=== PATIENT | female | born 1990 | race Caucasian/White ===

== ENCOUNTER 2017-01-15 14:13 | Inpatient (IN) | payer OTHER ==
[2017-01-15 15:43] VITALS: BMI 23.8
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
[2017-01-15] MEDS ORDERED: guaiFENesin/D-METHORPHAN HB 10 ML UNIT-DOSE CUPS PO PRN (17:33)
[2017-01-15] MEDS ORDERED: MENTHOL/PHENOL 1 EACH UD MM PRN (17:33)
[2017-01-15] MEDS ORDERED: ACETAMINOPHEN 325 MG TABLET (FP) PO PRN (17:33)
[2017-01-15] MEDS ORDERED: P-EPHED 60MG/TRIPROLIDI 2.5MG TABLET PO PRN (17:33)
[2017-01-15] MEDS ORDERED: LOPERAMIDE HCL 2 MG CAPSULE PO PRN (17:33)
[2017-01-15] MEDS ORDERED: MAGNESIUM HYDROX 2400MG/30ML ORAL SUSPENSION 30 ML CUP PO PRN (17:33)
[2017-01-15] MEDS ORDERED: MAGNESIUM CITRATE 300 ML BOTTLE PO PRN (17:33)
[2017-01-15] MEDS ORDERED: MAG HYDROX/AL HYDROX/SIMETH 30 ML UNIT-DOSE CUP PO PRN (17:33)
[2017-01-15] MEDS ORDERED: METHADONE HCL 10 MG TABLET PO ONE ×4 (18:15→22:34)
[2017-01-15] MEDS ORDERED: TUBERCULIN PPD 5 TU/0.1ML VIAL ID ONE (22:03)
--- NOTE | 2017-01-15 22:23 | PN ---
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 26 y/o female newly admitted to [facility]. Patient not available for interview.Asleep. Pharmacy claims revisited.No information. Medications will be restarted in AM after evaluation.
[2017-01-15] MEDS: THIAMINE HCL 100 MG TABLET (FP) PO SCH (22:46)
[2017-01-15] MEDS: diphenhydrAMINE HCL 50 MG CAPSULE PO PRN (22:46)
[2017-01-15] MEDS: NICOTINE 21 MG/24 HOURS TOPICAL PATCH TD SCH (22:47)
[2017-01-15] MEDS: IBUPROFEN 400 MG TABLET (FP) PO PRN (22:48)
[2017-01-15 23:00] LABS: URINE APPEARANCE SLCLOUDY; URINE BILIRUBIN NEGATIVE (NEGATIVE); URINE BLOOD NEGATIVE (NEGATIVE); URINE COLOR YELLOW; URINE GLUCOSE (UA) NEGATIVE (NEGATIVE); URINE KETONE NEGATIVE (NEGATIVE); URINE NITRITE NEGATIVE (NEGATIVE); URINE PROTEIN NEGATIVE (NEGATIVE); URINE UROBILINOGEN NEGATIVE mg/dL (0.2-1.0)
[2017-01-15 23:01] LABS: URINE LEUK ESTERASE 3+ (NEGATIVE)
[2017-01-15 23:04] LABS: URINE BACTERIA RARE /hpf (NONE SEEN); URINE MUCUS RARE; URINE RBC 2 /hpf (0-3); URINE WBC 32 /hpf (3-5)
[2017-01-16] MEDS: METHADONE HCL 40 MG DISPERSABLE TABLET PO SCH (07:58)
[2017-01-16] MEDS: NICOTINE 21 MG/24 HOURS TOPICAL PATCH TD SCH ×2 (09:32→18:34)
[2017-01-16] MEDS: PRENATAL VITAMINS W/ FOLIC ACID TABLET (FP) PO SCH (09:32)
[2017-01-16 10:01] LABS: ALBUMIN 3.4 g/dl (3.4-5.0); ALK PHOS 69 U/L (45-117); ANION GAP 6 (8-16); BILIRUBIN,TOTAL 0.5 mg/dL (0.2-1.0); CO2 26 mmol/L (21-32); CREATININE 0.8 mg/dL (0.55-1.02); GLUCOSE,RANDOM 94 mg/dL (74-106); SGOT/AST 26 U/L (15-37); SGPT/ALT 45 U/L (12-78); TOT PROT 6.7 g/dl (6.4-8.2)
[2017-01-16 10:02] LABS: MCH 29.2 pg (25.7-33.7); MCHC 33.5 g/dl (32.0-36.0); MEAN CELL VOLUME 87.1 fl (80-96); MEAN PLT VOLUME 8.7 fl (7.5-11.1); PLATELET COUNT 283 K/MM3 (134-434); RDW 13.7 % (11.6-15.6); WHITE BLOOD COUNT 6.2 K/mm3 (4.0-10.0)
--- NOTE | 2017-01-16 11:29 | HP ---
Psychiatrist Admission - Data Date of interview: 01/16/17 Admission source: [facility] Identifying data: This is the first admission to [address] [place] [address] [facility] this 26 years old single female,childless,resides in [place],unemploeyed. Medical History: H/O 7 surgeries for cellulitis. Psychiatric History: First contact with psychiatrist was about 2 years ago when she was admitted to [facility] due to severe depression.patient was dx with Bipolar II disorder.placed on Lexapro,Depakote,Risperidone,Klonopin, Trazodone.She reports 2 psychiatric hospitalizations.[facility],current medications:Zoloft 200 mg po daily,Depakote 500 mg po bid,Risperidone 0,5 mg po bid,Trazodone 100 mg po hs. Physical/Sexual Abuse/Trauma History: denies Vital Signs: Vital Signs - 24 hr 01/15/17 01/15/17 01/16/17 15:38 20:40 00:30 Temperature 96 F L 97.5 F L Pulse Rate 61 65 Respiratory 20 18 18 Rate Blood Pressure 108/72 110/73 01/16/17 01/16/17 03:30 07:08 Temperature 98.0 F Pulse Rate 56 L Respiratory 18 16 Rate Blood Pressure 96/59 Allergies/Adverse Reactions: Allergies Allergy/AdvReac Type Severity Reaction Status Date / Time Sulfa (Sulfonamide Allergy Severe Rash Verified 01/15/17 17:05 Antibiotics) Date of last physical exam: 01/15/17 Concur with the findings of this exam: Yes - Substance Abuse/Tx History Hx Alcohol Use: No Hx Substance Use: Yes (cocaine since 26 yo injections,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) Substance Use Type: Alcohol, Cocaine, Tranquilizers Hx Substance Use Treatment: Yes ([facility] months ago,longest abstinence-2 years) - Admission Criteria Previous failed treatment: Yes Poor recovery environment: Yes Comorbidities: Yes Lacks judgement: Yes Mental Status Exam - Mental Status Exam Alert and Oriented to: Time, Place, Person Cognitive Function: Grossly Intact Patient Appearance: Unkempt Mood: Anxious, Irritable Affect: Mood Congruent, Labile Patient Behavior: Cooperative Speech Pattern: Clear Voice Loudness: Normal Thought Process: Goal Oriented Thought Disorder: Not Present Hallucinations: Denies Suicidal Ideation: Denies Homicidal Ideation: Denies Insight/Judgement: Fair Sleep: Fair Appetite: Fair Muscle strength/Tone: Normal Gait/Station: Normal Psychiatric Findings - Problem List ([place] 1, 2,3) (1) Bipolar disorder Current Visit: Yes Status: Chronic (2) Cocaine dependence Current Visit: Yes Status: Chronic (3) Methadone maintenance therapy patient Current Visit: Yes Status: Chronic (4) Nicotine dependence Current Visit: Yes Status: Chronic (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
[2017-01-16] MEDS: SERTRALINE HCL 50 MG TABLET (FP) PO SCH (15:55)
[2017-01-16] MEDS ORDERED: SERTRALINE HCL 50 MG TABLET (FP) PO ONE (16:15)
[2017-01-16] MEDS: hydrOXYzine PAMOATE 25 MG CAPSULE (FP) PO PRN ×2 (17:57→21:34)
[2017-01-16] MEDS: DIVALPROEX SODIUM 500 MG TABLET E.C. PO SCH (21:34)
[2017-01-16] MEDS: traZODone HCL 50 MG TABLET (FP) PO SCH (21:34)
[2017-01-16] MEDS: THIAMINE HCL 100 MG TABLET (FP) PO SCH (21:34)
[2017-01-16] MEDS: risperiDONE 0.5 MG TABLET (FP) PO SCH (21:34)
[2017-01-17] MEDS: METHADONE HCL 40 MG DISPERSABLE TABLET PO SCH (07:20)
--- NOTE | 2017-01-17 08:15 | EKG ---
Test Reason : Blood Pressure : / mmHG Vent. Rate : 050 BPM Atrial Rate : 050 BPM P-R Int : 126 ms QRS Dur : 090 ms QT Int : 508 ms P-R-T Axes : 038 075 048 degrees QTc Int : 463 ms SINUS BRADYCARDIA OTHERWISE NORMAL ECG NO PREVIOUS ECGS AVAILABLE Confirmed by JULIO BECKER, KIMBERLY ([id number]) on 01/17/2017 8:15:18 AM Referred By: Ruthy Rocha Confirmed By:KIMBERLY KIM MD
[2017-01-17] MEDS: PRENATAL VITAMINS W/ FOLIC ACID TABLET (FP) PO SCH (10:32)
[2017-01-17] MEDS: NICOTINE 21 MG/24 HOURS TOPICAL PATCH TD SCH (10:32)
[2017-01-17] MEDS: SERTRALINE HCL 50 MG TABLET (FP) PO SCH (10:33)
[2017-01-17] MEDS: DIVALPROEX SODIUM 500 MG TABLET E.C. PO SCH ×2 (10:33→21:42)
[2017-01-17] MEDS: risperiDONE 0.5 MG TABLET (FP) PO SCH ×2 (10:33→21:44)
[2017-01-17] MEDS: hydrOXYzine PAMOATE 25 MG CAPSULE (FP) PO PRN ×2 (10:35→21:44)
[2017-01-17] MEDS: traZODone HCL 50 MG TABLET (FP) PO SCH (21:42)
[2017-01-17] MEDS: THIAMINE HCL 100 MG TABLET (FP) PO SCH (21:42)
[2017-01-18] MEDS: IBUPROFEN 400 MG TABLET (FP) PO PRN ×2 (07:13→18:32)
[2017-01-18] MEDS: METHADONE HCL 40 MG DISPERSABLE TABLET PO SCH (07:13)
[2017-01-18] MEDS: SERTRALINE HCL 50 MG TABLET (FP) PO SCH (09:56)
[2017-01-18] MEDS: DIVALPROEX SODIUM 500 MG TABLET E.C. PO SCH ×2 (09:56→21:38)
[2017-01-18] MEDS: risperiDONE 0.5 MG TABLET (FP) PO SCH ×2 (09:57→21:38)
[2017-01-18] MEDS: PRENATAL VITAMINS W/ FOLIC ACID TABLET (FP) PO SCH (09:57)
[2017-01-18] MEDS: NICOTINE 21 MG/24 HOURS TOPICAL PATCH TD SCH (09:58)
[2017-01-18] MEDS: traZODone HCL 50 MG TABLET (FP) PO SCH (21:38)
[2017-01-18] MEDS: THIAMINE HCL 100 MG TABLET (FP) PO SCH (21:39)
[2017-01-19] MEDS: METHADONE HCL 40 MG DISPERSABLE TABLET PO SCH (06:50)
[2017-01-19] MEDS: SERTRALINE HCL 50 MG TABLET (FP) PO SCH (09:54)
[2017-01-19] MEDS: DIVALPROEX SODIUM 500 MG TABLET E.C. PO SCH ×2 (09:54→21:32)
[2017-01-19] MEDS: PRENATAL VITAMINS W/ FOLIC ACID TABLET (FP) PO SCH (09:55)
[2017-01-19] MEDS: NICOTINE 21 MG/24 HOURS TOPICAL PATCH TD SCH (09:55)
[2017-01-19] MEDS: risperiDONE 0.5 MG TABLET (FP) PO SCH ×2 (09:56→21:32)
[2017-01-19] MEDS: IBUPROFEN 400 MG TABLET (FP) PO PRN (09:56)
[2017-01-19] MEDS: traZODone HCL 50 MG TABLET (FP) PO SCH (21:32)
[2017-01-19] MEDS: THIAMINE HCL 100 MG TABLET (FP) PO SCH (21:32)
[2017-01-20] MEDS: METHADONE HCL 40 MG DISPERSABLE TABLET PO SCH (06:15)
[2017-01-20] MEDS: IBUPROFEN 600 MG TABLET (FP) PO PRN (09:02)
[2017-01-20] MEDS: DIVALPROEX SODIUM 500 MG TABLET E.C. PO SCH ×2 (10:00→22:09)
[2017-01-20] MEDS: PRENATAL VITAMINS W/ FOLIC ACID TABLET (FP) PO SCH (10:00)
[2017-01-20] MEDS: SERTRALINE HCL 50 MG TABLET (FP) PO SCH (10:00)
[2017-01-20] MEDS: NICOTINE 21 MG/24 HOURS TOPICAL PATCH TD SCH (10:00)
[2017-01-20] MEDS: risperiDONE 0.5 MG TABLET (FP) PO SCH ×2 (10:00→22:09)
[2017-01-20] MEDS: traZODone HCL 50 MG TABLET (FP) PO SCH (22:08)
[2017-01-20] MEDS: diphenhydrAMINE HCL 50 MG CAPSULE PO PRN (22:09)
[2017-01-20] MEDS: THIAMINE HCL 100 MG TABLET (FP) PO SCH (22:09)
[2017-01-21] MEDS: METHADONE HCL 40 MG DISPERSABLE TABLET PO SCH (06:54)
[2017-01-21] MEDS: SERTRALINE HCL 50 MG TABLET (FP) PO SCH (10:32)
[2017-01-21] MEDS: PRENATAL VITAMINS W/ FOLIC ACID TABLET (FP) PO SCH (10:33)
[2017-01-21] MEDS: risperiDONE 0.5 MG TABLET (FP) PO SCH ×2 (10:33→21:50)
[2017-01-21] MEDS: NICOTINE 21 MG/24 HOURS TOPICAL PATCH TD SCH (10:33)
[2017-01-21] MEDS: DIVALPROEX SODIUM 500 MG TABLET E.C. PO SCH ×2 (10:33→21:49)
[2017-01-21] MEDS: hydrOXYzine PAMOATE 25 MG CAPSULE (FP) PO PRN (10:35)
[2017-01-21] MEDS: IBUPROFEN 600 MG TABLET (FP) PO PRN (21:48)
[2017-01-21] MEDS: traZODone HCL 50 MG TABLET (FP) PO SCH (21:48)
[2017-01-21] MEDS: THIAMINE HCL 100 MG TABLET (FP) PO SCH (21:48)
[2017-01-22] MEDS: METHADONE HCL 40 MG DISPERSABLE TABLET PO SCH (06:32)
[2017-01-22] MEDS: NICOTINE 21 MG/24 HOURS TOPICAL PATCH TD SCH (10:35)
[2017-01-22] MEDS: risperiDONE 0.5 MG TABLET (FP) PO SCH ×2 (10:36→21:42)
[2017-01-22] MEDS: DIVALPROEX SODIUM 500 MG TABLET E.C. PO SCH ×2 (10:36→21:42)
[2017-01-22] MEDS: SERTRALINE HCL 50 MG TABLET (FP) PO SCH (10:36)
[2017-01-22] MEDS: PRENATAL VITAMINS W/ FOLIC ACID TABLET (FP) PO SCH (10:36)
[2017-01-22] MEDS: THIAMINE HCL 100 MG TABLET (FP) PO SCH (21:42)
[2017-01-22] MEDS: traZODone HCL 50 MG TABLET (FP) PO SCH (21:42)
[2017-01-22] MEDS: IBUPROFEN 600 MG TABLET (FP) PO PRN (21:43)
[2017-01-22] MEDS: diphenhydrAMINE HCL 50 MG CAPSULE PO PRN (21:45)
[2017-01-23] MEDS: METHADONE HCL 40 MG DISPERSABLE TABLET PO SCH (06:47)
[2017-01-23] MEDS: NICOTINE 21 MG/24 HOURS TOPICAL PATCH TD SCH (10:37)
[2017-01-23] MEDS: PRENATAL VITAMINS W/ FOLIC ACID TABLET (FP) PO SCH (10:38)
[2017-01-23] MEDS: DIVALPROEX SODIUM 500 MG TABLET E.C. PO SCH ×2 (10:38→21:56)
[2017-01-23] MEDS: SERTRALINE HCL 50 MG TABLET (FP) PO SCH (10:38)
[2017-01-23] MEDS: risperiDONE 0.5 MG TABLET (FP) PO SCH ×2 (10:38→21:56)
[2017-01-23] MEDS: THIAMINE HCL 100 MG TABLET (FP) PO SCH (21:56)
[2017-01-23] MEDS: traZODone HCL 50 MG TABLET (FP) PO SCH (21:56)
[2017-01-23] MEDS: diphenhydrAMINE HCL 50 MG CAPSULE PO PRN (21:57)
[2017-01-24] MEDS: METHADONE HCL 40 MG DISPERSABLE TABLET PO SCH (06:32)
[2017-01-24] MEDS: NICOTINE 21 MG/24 HOURS TOPICAL PATCH TD SCH (10:14)
[2017-01-24] MEDS: PRENATAL VITAMINS W/ FOLIC ACID TABLET (FP) PO SCH (10:15)
[2017-01-24] MEDS: DIVALPROEX SODIUM 500 MG TABLET E.C. PO SCH ×2 (10:15→21:42)
[2017-01-24] MEDS: SERTRALINE HCL 50 MG TABLET (FP) PO SCH (10:15)
[2017-01-24] MEDS: risperiDONE 0.5 MG TABLET (FP) PO SCH ×2 (10:15→21:42)
[2017-01-24] MEDS: traZODone HCL 50 MG TABLET (FP) PO SCH (21:41)
[2017-01-24] MEDS: diphenhydrAMINE HCL 50 MG CAPSULE PO PRN (21:42)
[2017-01-24] MEDS: THIAMINE HCL 100 MG TABLET (FP) PO SCH (21:42)
[2017-01-25] MEDS: METHADONE HCL 40 MG DISPERSABLE TABLET PO SCH (06:42)
[2017-01-25] MEDS: DIVALPROEX SODIUM 500 MG TABLET E.C. PO SCH ×2 (09:17→21:47)
[2017-01-25] MEDS: NICOTINE 21 MG/24 HOURS TOPICAL PATCH TD SCH (09:17)
[2017-01-25] MEDS: risperiDONE 0.5 MG TABLET (FP) PO SCH ×2 (09:18→21:47)
[2017-01-25] MEDS: SERTRALINE HCL 50 MG TABLET (FP) PO SCH (09:18)
[2017-01-25] MEDS: PRENATAL VITAMINS W/ FOLIC ACID TABLET (FP) PO SCH (09:18)
[2017-01-25] MEDS: THIAMINE HCL 100 MG TABLET (FP) PO SCH (21:47)
[2017-01-25] MEDS: traZODone HCL 50 MG TABLET (FP) PO SCH (21:48)
[2017-01-25] MEDS: diphenhydrAMINE HCL 50 MG CAPSULE PO PRN (21:48)
[2017-01-26] MEDS: METHADONE HCL 40 MG DISPERSABLE TABLET PO SCH (06:32)
[2017-01-26] MEDS ORDERED: PT OWN MED DRAWER 7, Y5N ONE (09:24)
[2017-01-26] MEDS: NICOTINE 21 MG/24 HOURS TOPICAL PATCH TD SCH (10:42)
[2017-01-26] MEDS: PRENATAL VITAMINS W/ FOLIC ACID TABLET (FP) PO SCH (10:43)
[2017-01-26] MEDS: DIVALPROEX SODIUM 500 MG TABLET E.C. PO SCH ×2 (10:43→21:53)
[2017-01-26] MEDS: risperiDONE 0.5 MG TABLET (FP) PO SCH ×2 (10:43→21:54)
[2017-01-26] MEDS: SERTRALINE HCL 50 MG TABLET (FP) PO SCH (10:43)
[2017-01-26] MEDS: THIAMINE HCL 100 MG TABLET (FP) PO SCH (21:53)
[2017-01-26] MEDS: diphenhydrAMINE HCL 50 MG CAPSULE PO PRN (21:54)
[2017-01-26] MEDS: traZODone HCL 50 MG TABLET (FP) PO SCH (21:54)
[2017-01-27] MEDS: METHADONE HCL 40 MG DISPERSABLE TABLET PO SCH (06:59)
[2017-01-27] MEDS: NICOTINE 21 MG/24 HOURS TOPICAL PATCH TD SCH (10:26)
[2017-01-27] MEDS: DIVALPROEX SODIUM 500 MG TABLET E.C. PO SCH ×2 (10:26→21:52)
[2017-01-27] MEDS: PRENATAL VITAMINS W/ FOLIC ACID TABLET (FP) PO SCH (10:27)
[2017-01-27] MEDS: SERTRALINE HCL 50 MG TABLET (FP) PO SCH (10:27)
[2017-01-27] MEDS: risperiDONE 0.5 MG TABLET (FP) PO SCH ×2 (10:27→21:52)
[2017-01-27] MEDS: THIAMINE HCL 100 MG TABLET (FP) PO SCH (21:52)
[2017-01-27] MEDS: traZODone HCL 50 MG TABLET (FP) PO SCH (21:52)
[2017-01-27] MEDS: diphenhydrAMINE HCL 50 MG CAPSULE PO PRN (21:53)
[2017-01-28] MEDS: METHADONE HCL 40 MG DISPERSABLE TABLET PO SCH (06:39)
[2017-01-28] MEDS: PRENATAL VITAMINS W/ FOLIC ACID TABLET (FP) PO SCH (10:17)
[2017-01-28] MEDS: DIVALPROEX SODIUM 500 MG TABLET E.C. PO SCH ×2 (10:17→21:57)
[2017-01-28] MEDS: risperiDONE 0.5 MG TABLET (FP) PO SCH ×2 (10:17→21:57)
[2017-01-28] MEDS: NICOTINE 21 MG/24 HOURS TOPICAL PATCH TD SCH (10:18)
[2017-01-28] MEDS: SERTRALINE HCL 50 MG TABLET (FP) PO SCH (10:18)
[2017-01-28] MEDS: THIAMINE HCL 100 MG TABLET (FP) PO SCH (21:57)
[2017-01-28] MEDS: traZODone HCL 50 MG TABLET (FP) PO SCH (21:57)
[2017-01-28] MEDS: diphenhydrAMINE HCL 50 MG CAPSULE PO PRN (21:57)
[2017-01-29] MEDS: METHADONE HCL 40 MG DISPERSABLE TABLET PO SCH (07:07)
[2017-01-29] MEDS: NICOTINE 21 MG/24 HOURS TOPICAL PATCH TD SCH (10:04)
[2017-01-29] MEDS: PRENATAL VITAMINS W/ FOLIC ACID TABLET (FP) PO SCH (10:05)
[2017-01-29] MEDS: DIVALPROEX SODIUM 500 MG TABLET E.C. PO SCH ×2 (10:05→21:52)
[2017-01-29] MEDS: SERTRALINE HCL 50 MG TABLET (FP) PO SCH (10:05)
[2017-01-29] MEDS: risperiDONE 0.5 MG TABLET (FP) PO SCH ×2 (10:06→21:52)
[2017-01-29] MEDS: THIAMINE HCL 100 MG TABLET (FP) PO SCH (21:52)
[2017-01-29] MEDS: traZODone HCL 50 MG TABLET (FP) PO SCH (21:53)
[2017-01-29] MEDS: diphenhydrAMINE HCL 50 MG CAPSULE PO PRN (21:53)
[2017-01-30] MEDS: METHADONE HCL 40 MG DISPERSABLE TABLET PO SCH (06:22)
[2017-01-30] MEDS: SERTRALINE HCL 50 MG TABLET (FP) PO SCH (10:21)
[2017-01-30] MEDS: PRENATAL VITAMINS W/ FOLIC ACID TABLET (FP) PO SCH (10:21)
[2017-01-30] MEDS: NICOTINE 21 MG/24 HOURS TOPICAL PATCH TD SCH (10:21)
[2017-01-30] MEDS: DIVALPROEX SODIUM 500 MG TABLET E.C. PO SCH ×2 (10:21→22:13)
[2017-01-30] MEDS: risperiDONE 0.5 MG TABLET (FP) PO SCH ×2 (10:22→22:12)
[2017-01-30] MEDS: traZODone HCL 50 MG TABLET (FP) PO SCH (22:12)
[2017-01-30] MEDS: THIAMINE HCL 100 MG TABLET (FP) PO SCH (22:14)
[2017-01-31] MEDS: METHADONE HCL 40 MG DISPERSABLE TABLET PO SCH (06:44)
[2017-01-31] MEDS: PRENATAL VITAMINS W/ FOLIC ACID TABLET (FP) PO SCH (10:18)
[2017-01-31] MEDS: risperiDONE 0.5 MG TABLET (FP) PO SCH ×2 (10:18→21:59)
[2017-01-31] MEDS: DIVALPROEX SODIUM 250 MG TABLET E.C. (FP) PO SCH (10:18)
[2017-01-31] MEDS: SERTRALINE HCL 50 MG TABLET (FP) PO SCH (10:18)
[2017-01-31] MEDS: NICOTINE 21 MG/24 HOURS TOPICAL PATCH TD SCH (10:19)
[2017-01-31] MEDS: IBUPROFEN 600 MG TABLET (FP) PO PRN (10:19)
[2017-01-31] MEDS: diphenhydrAMINE HCL 50 MG CAPSULE PO PRN (21:58)
[2017-01-31] MEDS: THIAMINE HCL 100 MG TABLET (FP) PO SCH (21:58)
[2017-01-31] MEDS: traZODone HCL 50 MG TABLET (FP) PO SCH (21:58)
[2017-01-31] MEDS: DIVALPROEX SODIUM 500 MG TABLET E.C. PO SCH (22:00)
[2017-02-01] MEDS: METHADONE HCL 40 MG DISPERSABLE TABLET PO SCH (06:30)
[2017-02-01] MEDS: SERTRALINE HCL 50 MG TABLET (FP) PO SCH (10:13)
[2017-02-01] MEDS: PRENATAL VITAMINS W/ FOLIC ACID TABLET (FP) PO SCH (10:13)
[2017-02-01] MEDS: DIVALPROEX SODIUM 250 MG TABLET E.C. (FP) PO SCH (10:13)
[2017-02-01] MEDS: risperiDONE 0.5 MG TABLET (FP) PO SCH ×2 (10:13→22:12)
[2017-02-01] MEDS: NICOTINE 21 MG/24 HOURS TOPICAL PATCH TD SCH (10:14)
[2017-02-01] MEDS: traZODone HCL 50 MG TABLET (FP) PO SCH (22:12)
[2017-02-01] MEDS: DIVALPROEX SODIUM 500 MG TABLET E.C. PO SCH (22:12)
[2017-02-01] MEDS: diphenhydrAMINE HCL 50 MG CAPSULE PO PRN (22:12)
[2017-02-01] MEDS: THIAMINE HCL 100 MG TABLET (FP) PO SCH (22:13)
[2017-02-02] MEDS: METHADONE HCL 40 MG DISPERSABLE TABLET PO SCH (06:18)
[2017-02-02] MEDS: SERTRALINE HCL 50 MG TABLET (FP) PO SCH (10:25)
[2017-02-02] MEDS: risperiDONE 0.5 MG TABLET (FP) PO SCH ×2 (10:25→21:42)
[2017-02-02] MEDS: NICOTINE 21 MG/24 HOURS TOPICAL PATCH TD SCH (10:26)
[2017-02-02] MEDS: PRENATAL VITAMINS W/ FOLIC ACID TABLET (FP) PO SCH (10:26)
[2017-02-02] MEDS: DIVALPROEX SODIUM 250 MG TABLET E.C. (FP) PO SCH (10:26)
[2017-02-02] MEDS: THIAMINE HCL 100 MG TABLET (FP) PO SCH (21:42)
[2017-02-02] MEDS: diphenhydrAMINE HCL 50 MG CAPSULE PO PRN (21:42)
[2017-02-02] MEDS: traZODone HCL 50 MG TABLET (FP) PO SCH (21:42)
[2017-02-02] MEDS: DIVALPROEX SODIUM 500 MG TABLET E.C. PO SCH (21:42)
[2017-02-03] MEDS: METHADONE HCL 40 MG DISPERSABLE TABLET PO SCH (06:28)
[2017-02-03] MEDS: DIVALPROEX SODIUM 250 MG TABLET E.C. (FP) PO SCH (10:19)
[2017-02-03] MEDS: SERTRALINE HCL 50 MG TABLET (FP) PO SCH (10:19)
[2017-02-03] MEDS: risperiDONE 0.5 MG TABLET (FP) PO SCH ×2 (10:19→21:42)
[2017-02-03] MEDS: NICOTINE 21 MG/24 HOURS TOPICAL PATCH TD SCH (10:19)
[2017-02-03] MEDS: PRENATAL VITAMINS W/ FOLIC ACID TABLET (FP) PO SCH (10:19)
[2017-02-03] MEDS: THIAMINE HCL 100 MG TABLET (FP) PO SCH (21:41)
[2017-02-03] MEDS: DIVALPROEX SODIUM 500 MG TABLET E.C. PO SCH (21:41)
[2017-02-03] MEDS: traZODone HCL 50 MG TABLET (FP) PO SCH (21:41)
[2017-02-04] MEDS: METHADONE HCL 40 MG DISPERSABLE TABLET PO SCH (06:27)
[2017-02-04] MEDS: NICOTINE 21 MG/24 HOURS TOPICAL PATCH TD SCH (10:03)
[2017-02-04] MEDS: risperiDONE 0.5 MG TABLET (FP) PO SCH ×2 (10:04→21:52)
[2017-02-04] MEDS: SERTRALINE HCL 50 MG TABLET (FP) PO SCH (10:04)
[2017-02-04] MEDS: PRENATAL VITAMINS W/ FOLIC ACID TABLET (FP) PO SCH (10:04)
[2017-02-04] MEDS: DIVALPROEX SODIUM 250 MG TABLET E.C. (FP) PO SCH (10:04)
[2017-02-04] MEDS: THIAMINE HCL 100 MG TABLET (FP) PO SCH (21:52)
[2017-02-04] MEDS: diphenhydrAMINE HCL 50 MG CAPSULE PO PRN (21:52)
[2017-02-04] MEDS: traZODone HCL 50 MG TABLET (FP) PO SCH (21:52)
[2017-02-04] MEDS: DIVALPROEX SODIUM 500 MG TABLET E.C. PO SCH (21:52)
[2017-02-05] MEDS: METHADONE HCL 40 MG DISPERSABLE TABLET PO SCH (06:40)
[2017-02-05] MEDS: SERTRALINE HCL 50 MG TABLET (FP) PO SCH (10:17)
[2017-02-05] MEDS: risperiDONE 0.5 MG TABLET (FP) PO SCH ×2 (10:17→21:41)
[2017-02-05] MEDS: DIVALPROEX SODIUM 250 MG TABLET E.C. (FP) PO SCH (10:17)
[2017-02-05] MEDS: NICOTINE 21 MG/24 HOURS TOPICAL PATCH TD SCH (10:17)
[2017-02-05] MEDS: PRENATAL VITAMINS W/ FOLIC ACID TABLET (FP) PO SCH (10:18)
[2017-02-05] MEDS ORDERED: PT OWN MED DRAWER 7, Y5N ONE (10:26)
[2017-02-05] MEDS: traZODone HCL 50 MG TABLET (FP) PO SCH (21:41)
[2017-02-05] MEDS: DIVALPROEX SODIUM 500 MG TABLET E.C. PO SCH (21:41)
[2017-02-05] MEDS: THIAMINE HCL 100 MG TABLET (FP) PO SCH (21:42)
[2017-02-06] MEDS: METHADONE HCL 40 MG DISPERSABLE TABLET PO SCH (06:41)
[2017-02-06] MEDS: PRENATAL VITAMINS W/ FOLIC ACID TABLET (FP) PO SCH (10:21)
[2017-02-06] MEDS: risperiDONE 0.5 MG TABLET (FP) PO SCH ×2 (10:21→21:56)
[2017-02-06] MEDS: DIVALPROEX SODIUM 250 MG TABLET E.C. (FP) PO SCH (10:21)
[2017-02-06] MEDS: SERTRALINE HCL 50 MG TABLET (FP) PO SCH (10:21)
[2017-02-06] MEDS: NICOTINE 21 MG/24 HOURS TOPICAL PATCH TD SCH (10:22)
[2017-02-06] MEDS: DIVALPROEX SODIUM 500 MG TABLET E.C. PO SCH (21:56)
[2017-02-06] MEDS: traZODone HCL 50 MG TABLET (FP) PO SCH (21:56)
[2017-02-06] MEDS: THIAMINE HCL 100 MG TABLET (FP) PO SCH (21:56)
[2017-02-06] MEDS: diphenhydrAMINE HCL 50 MG CAPSULE PO PRN (21:56)
[2017-02-07] MEDS: METHADONE HCL 40 MG DISPERSABLE TABLET PO SCH (06:35)
[2017-02-07] MEDS: PRENATAL VITAMINS W/ FOLIC ACID TABLET (FP) PO SCH (09:49)
[2017-02-07] MEDS: NICOTINE 21 MG/24 HOURS TOPICAL PATCH TD SCH (09:49)
[2017-02-07] MEDS: risperiDONE 0.5 MG TABLET (FP) PO SCH ×2 (09:49→21:43)
[2017-02-07] MEDS: DIVALPROEX SODIUM 250 MG TABLET E.C. (FP) PO SCH (09:49)
[2017-02-07] MEDS: SERTRALINE HCL 50 MG TABLET (FP) PO SCH (09:49)
[2017-02-07] MEDS: diphenhydrAMINE HCL 50 MG CAPSULE PO PRN (21:42)
[2017-02-07] MEDS: DIVALPROEX SODIUM 500 MG TABLET E.C. PO SCH (21:42)
[2017-02-07] MEDS: THIAMINE HCL 100 MG TABLET (FP) PO SCH (21:42)
[2017-02-07] MEDS: traZODone HCL 50 MG TABLET (FP) PO SCH (21:42)
[2017-02-08] MEDS: METHADONE HCL 40 MG DISPERSABLE TABLET PO SCH (06:52)
[2017-02-08] MEDS: PRENATAL VITAMINS W/ FOLIC ACID TABLET (FP) PO SCH (09:54)
[2017-02-08] MEDS: DIVALPROEX SODIUM 250 MG TABLET E.C. (FP) PO SCH (09:54)
[2017-02-08] MEDS: SERTRALINE HCL 50 MG TABLET (FP) PO SCH (09:54)
[2017-02-08] MEDS: NICOTINE 21 MG/24 HOURS TOPICAL PATCH TD SCH (09:54)
[2017-02-08] MEDS: risperiDONE 0.5 MG TABLET (FP) PO SCH ×2 (09:54→21:33)
[2017-02-08] MEDS: THIAMINE HCL 100 MG TABLET (FP) PO SCH (21:32)
[2017-02-08] MEDS: DIVALPROEX SODIUM 500 MG TABLET E.C. PO SCH (21:32)
[2017-02-08] MEDS: traZODone HCL 50 MG TABLET (FP) PO SCH (21:33)
[2017-02-09] MEDS: METHADONE HCL 40 MG DISPERSABLE TABLET PO SCH (06:36)
[2017-02-09 06:59] VITALS: BP 112/77; PULSE 78; TEMP 97.1
--- NOTE | 2017-02-09 08:35 | PN ---
Psychiatric Progress Note Vital Signs: Vital Signs Period Temp Pulse Resp BP Sys/Rios Pulse Ox Last 24 Hr 97.1 F 78 16-18 112/77 Date of Session: 02/09/17 Chief Complaint:: Dischrge order HPI: Patient successfully completed rehabiltation protocol and dissharged home on: Risperdal 0,5mg po bid. Zoloft 200mg poqd. Trazodone 100mg po qhs. Depakote 250mg pqod, 500mg po qhs Current Medications: Active Medications Generic Name Dose Route Start Last Admin Trade Name Freq PRN Reason Stop Dose Admin Acetaminophen 650 mg 01/15/17 17:33 01/18/17 21:39 Tylenol - PO 650 mg Q4H PRN Administration PAIN Al Hydroxide/Mg Hydroxide 30 ml 01/15/17 17:33 Mylanta Oral Suspension - PO Q6H PRN DYSPEPSIA Diphenhydramine HCl 50 mg 01/15/17 17:33 02/07/17 21:42 Benadryl - PO 50 mg HSMR1 PRN Administration INSOMNIA Divalproex Sodium 250 mg 01/31/17 10:00 02/08/17 09:54 Depakote - PO 250 mg DAILY ANTONETTE Administration Divalproex Sodium 500 mg 01/30/17 22:00 02/08/17 21:32 Depakote - PO 500 mg HS ANTONETTE Administration Eucalyptus/Menthol/Phenol/Sorbitol 1 each 01/15/17 17:33 Cepastat Lozenge - MM Q4H PRN SORE THROAT Guaifenesin 10 ml 01/15/17 17:33 Robitussin Dm - PO Q6H PRN COUGH Hydroxyzine Pamoate 25 mg 01/15/17 17:33 01/21/17 10:35 Vistaril - PO 25 mg Q4H PRN Administration AGITATION Ibuprofen 600 mg 01/19/17 15:06 01/31/17 10:19 Motrin - PO 600 mg Q6H PRN Administration SEVERE PAIN Loperamide HCl 4 mg 01/15/17 17:33 Imodium - PO Q6H PRN DIARRHEA Magnesium Citrate 300 ml 01/15/17 17:33 Citroma - PO Q48H PRN CONSTIPATION Magnesium Hydroxide 30 ml 01/15/17 17:33 Milk Of Magnesia - PO DAILY PRN CONSTIPATION Methadone HCl 120 mg 02/06/17 06:00 02/09/17 06:36 Dolophine - PO 120 mg DAILY@0600 ANTONETTE Administration Nicotine 21 mg 01/16/17 18:30 02/08/17 09:54 Nicoderm Patch - TD Not Given DAILY [facility] Multivit/Folic Acid/Iron 1 tab 01/16/17 10:00 02/08/17 09:54 Vitamins (Sjr) - PO 1 tab DAILY ANTONETTE Administration Pseudoephedrine/Triprolidine 1 combo 01/15/17 17:33 Actifed - PO TID PRN NASAL CONGESTION Risperidone 0.5 mg 01/16/17 22:00 02/08/17 21:33 Risperdal - PO 0.5 mg BID ANTONETTE Administration Sertraline HCl 200 mg 01/16/17 10:00 02/08/17 09:54 Zoloft - PO 200 mg DAILY ANTONETTE Administration Thiamine HCl 100 mg 01/15/17 22:00 02/08/17 21:32 Vitamin B1 - PO 100 mg HS ANTONETTE Administration Trazodone HCl 100 mg 01/16/17 22:00 02/08/17 21:33 Desyrel - PO 100 mg HS ANTONETTE Administration Medication(s) Change(s): Risperdal 0,5mg po bid. Zoloft 200mg poqd. Trazodone 100mg po qhs. Depakote 250mg pqod, 500mg po qhs Mental Status Exam - Mental Status Exam Alert and Oriented to: Person Cognitive Function: Fair Patient Appearance: Well Groomed Mood: Anxious Affect: Mood Congruent Patient Behavior: Cooperative Speech Pattern: Appropriate Voice Loudness: Normal Thought Process: Goal Oriented Thought Disorder: Being Controlled Hallucinations: Denies Suicidal Ideation: Denies Homicidal Ideation: Denies Insight/Judgement: Fair Sleep: Difficulty falling asleep Appetite: Weight loss Muscle strength/Tone: Mild Hypotonicity Gait/Station: Normal Additional Comments: Risperdal 0,5mg po bid. Zoloft 200mg poqd. Trazodone 100mg po qhs. Depakote 250mg pqod, 500mg po qhs Psychiatric Treatment Plan - Problem List (1) Uncomplicated sedative, hypnotic or anxiolytic withdrawal Current Visit: Yes (2) Anxiolytic dependence Current Visit: Yes (3) Bipolar disorder Current Visit: Yes (4) Cocaine dependence Current Visit: Yes (5) Methadone maintenance therapy patient Current Visit: Yes (6) Nicotine dependence Current Visit: Yes Initial treatment plan: Risperdal 0,5mg po bid. Zoloft 200mg poqd. Trazodone 100mg po qhs. Depakote 250mg pqod, 500mg po qhs
[2017-02-09] MEDS: DIVALPROEX SODIUM 250 MG TABLET E.C. (FP) PO SCH (09:01)
[2017-02-09] MEDS: PRENATAL VITAMINS W/ FOLIC ACID TABLET (FP) PO SCH (09:01)
[2017-02-09] MEDS: risperiDONE 0.5 MG TABLET (FP) PO SCH (09:01)
[2017-02-09] MEDS: SERTRALINE HCL 50 MG TABLET (FP) PO SCH (09:01)
[2017-02-09] MEDS: NICOTINE 21 MG/24 HOURS TOPICAL PATCH TD SCH (09:01)
== END 2017-02-09 09:09 | disposition home or self-care (01) | DRG 772 ==
LOC: YASAS 14:13 → Y3E 18:29
PROVIDERS: ADMIT Psychiatry & Neurology Psychiatry; ATTEND Psychiatry & Neurology Psychiatry
PROC: HZ42ZZZ Group Counseling for Substance Abuse Treatment, Cognitive-Behavioral (ICD-10-PCS; principal; 2017-01-15)
DX: F13.20 Sedative, hypnotic or anxiolytic dependence, uncomplicated (principal); F11.20 Opioid dependence, uncomplicated; F14.20 Cocaine dependence, uncomplicated; F17.210 Nicotine dependence, cigarettes, uncomplicated; F31.9 Bipolar disorder, unspecified; Z88.2 Allergy status to sulfonamides; Z87.898 Personal history of other specified conditions
CPT/HCPCS: 36415; 80053; 80164; 81003; 81015; 85027; 86593; 93005; 93010